=== PATIENT | female | born 1925 ===

== ENCOUNTER 2017-02-18 17:52 | Emergency (ER) | payer MEDICARE ==
[2017-02-18 17:52] VITALS: BMI 18.1
[2017-02-18] MEDS ORDERED: Oxycodone/Acetaminophen 5/325 mg Tab PO STA (18:49)
[2017-02-18] MEDS ORDERED: Oxycodone/Acetaminophen 5/325 mg Tab ONE (18:54)
[2017-02-18 19:12] LABS: BASO # 0.1 K/uL (0.0-0.2); BASO % 0.6 % (0.0-2.0); HEMATOCRIT 38.7 % (34.0-47.0); LYMPH # 0.5 K/uL (1.0-4.3); LYMPH % 5.8 % (20.0-40.0); MEAN CELL VOLUME 83.1 fL (81.0-99.0); MEAN CORPUSCULAR HEMOGLOBIN 26.6 pg (27.0-31.0); MEAN PLATELET VOLUME 8.6 fL (7.2-11.7); MONO # 0.3 K/uL (0.0-0.8); MONO % 3.5 % (0.0-10.0); PLATELET COUNT 117 K/uL (130-400)
[2017-02-18 19:14] LABS: WHITE BLOOD COUNT 8.8 K/uL (4.8-10.8)
[2017-02-18 19:22] LABS: POTASSIUM 3.7 mmol/L (3.6-5.2)
[2017-02-18 19:24] LABS: BILIRUBIN,TOTAL 1.1 mg/dL (0.2-1.3); TOTAL PROTEIN 7.3 g/dL (6.3-8.3)
[2017-02-18 19:25] LABS: CALCIUM 8.8 mg/dl (8.6-10.4)
--- NOTE | 2017-02-18 19:36 | C.PDOC ---
History Of Present Illness 89 year old female was brought to the ED by her campground caretaker for complaints of left -sided chest pain. Economic Developer notes the patient was diagnosed with a broken rib 6 -8 weeks ago, has chronic back pain associated with multiple old compression fractures and spinal stenosis. Patient also has chronic abdominal pain due to chronic pancreatitis and a history of atrial fibrillation. Due to frequent falls. Patient is not taking any anti-coagulants. Economic Developer denies any other complaints at this time. Time Seen by Provider: 02/18/17 18:07 Chief Complaint (Nursing): Abdominal Pain History Per: Patient, Family History/Exam Limitations: no limitations Onset/Duration Of Symptoms: Persistent Current Symptoms Are (Timing): Still Present Quality Of Discomfort: "Pain" Associated Symptoms: denies: Fever, Chills, Nausea, Vomiting, Diarrhea Past Medical History Vital Signs: Last Vital Signs Temp 97.7 F 02/18/17 23:46 Pulse 102 H 02/18/17 23:46 Resp 18 02/18/17 23:46 BP 141/80 02/18/17 23:46 Pulse Ox 98 02/18/17 23:46 - Medical History PMH: Atrial Fibrillation, Cardia Arrhythmia, CHF, Diabetes, HTN, Malignancy ( bone CA), Osteoporosis, Pancreatitis, Chronic Kidney Disease Surgical History: - [facility] Procedures TETANUS TOXOID ADMINIST (05/24/15) ULTRASONOGRAPHY OF RIGHT AND LEFT HEART, TRANSESOPHAGEAL (01/12/16) Family History: States: Unknown Family Hx - Social History Hx Tobacco Use: No Hx Alcohol Use: No Hx Substance Use: No Review Of Systems Except As Marked, All Systems Reviewed And Found Negative. Physical Exam - Physical Exam Appears: Chronically Ill Skin: Warm, Dry Neck: Supple Chest: Tenderness (localiazed tenderness to left chest ) Cardiovascular: Rhythm Irregular (irregularly irregular ) Respiratory: No Accessory Muscle Use, No Rales, Rhonchi (slight rhonci), No Stridor, No Wheezing Gastrointestinal/Abdominal: Soft, No Tenderness, No Distention, No Guarding, No Rebound Neurological/Psych: Oriented x3, Normal Speech, Normal Cognition Gait: With Assistance ED Course And Treatment - Laboratory Results Result Diagrams: 02/18/17 19:09 02/18/17 19:09 ECG: Interpreted By Me ECG Rhythm: Atrial Fibrillation ECG Interpretation: No Acute Changes Rate From EC O2 Sat by Pulse Oximetry: 94 Medical Decision Making Medical Decision Making: Pt remained stable in the ED Discussed with dr Kamran Houser, long hx of back pain and recant hx of chest wall pain Plan relieve pain in the and meds at home Medicated with percocet with goo relief. Pt reports the T'3s give her palpation Pt improved post med, ambulated to with assistance Plan dc home Disposition Counseled Patient/Family Regarding: Studies Performed, Diagnosis, Need For Followup - Disposition Referrals: Shad Houser MD [Staff Provider] - Disposition: HOME/ ROUTINE Disposition Time: 23:36 Condition: FAIR Prescriptions: oxyCODONE/Acetaminophen [Percocet 5/325 mg Tab] 1 tab PO Q4H PRN #20 tab PRN Reason: .severe pain Instructions: Chest Wall Pain (ED) Print Language: BURKINAN - Clinical Impression Clinical Impression: Chronic back pain, Spinal stenosis, Chest wall pain - Scribe Statement The provider has reviewed the documentation as recorded by the Scribe Deya Diaz All medical record entries made by the Jaileneibe were at my direction and personally dictated by me. I have reviewed the chart and agree that the record accurately reflects my personal performance of the history, physical exam, medical decision making, and the department course for this patient. I have also personally directed, reviewed, and agree with the discharge instructions and disposition.
[2017-02-18 20:05] LABS: EOSINOPHIL 1 % (0-4); LARGE PLATELETS PRESENT; NEUTROPHIL 92 % (50-75); TOTAL CELLS COUNTED 100
[2017-02-18 23:47] VITALS: BP 141/80; PULSE 102; RESP 18; TEMP 97.7
--- NOTE | 2017-02-19 08:21 | RAD ---
PROCEDURE: CHEST RADIOGRAPH, 1 VIEW HISTORY: Chest pain. History of rib fracture. COMPARISON: 10/16/2016 FINDINGS: LUNGS: Biapical pleural thickening with upper lobe granulomatous changes. Confluent left basilar consolidation with small to moderate left pleural effusion. Milder consolidative changes at the right lung base. Bilateral hilar prominence. Diffuse increased interstitial lung markings. Right paratracheal opacity is suggestive for prominent vasculature. PLEURA: As above. CARDIOVASCULAR: Cardiomegaly. Calcification at the aortic knob. OSSEOUS STRUCTURES: Degenerative changes in the spine and shoulders. VISUALIZED UPPER ABDOMEN: Normal. OTHER FINDINGS: None. IMPRESSION: Biapical pleural thickening with upper lobe granulomatous changes. Confluent left basilar consolidation with small to moderate left pleural effusion. Milder consolidative changes at the right lung base. Bilateral hilar prominence. Diffuse increased interstitial lung markings. Right paratracheal opacity is suggestive for prominent vasculature.
[2017-02-20 12:45] VITALS: O2SAT 94
--- NOTE | 2017-04-16 14:44 | CARD ---
APPROVED REPORT EKG Measurement Heart [id number] <Conclusion> Atrial fibrillation with rapid ventricular response Left axis deviation Septal infarct, age undetermined ST & T wave abnormality, consider lateral ischemia Abnormal ECG
== END 2017-02-18 23:47 | disposition home or self-care (01) ==
LOC: C.ER 17:52
DX: R07.89 Other chest pain (principal); G89.29 Other chronic pain; M54.9 Dorsalgia, unspecified; M48.00 Spinal stenosis, site unspecified; I10 Essential (primary) hypertension

== ENCOUNTER 2017-06-09 21:41 | Inpatient (IN) | payer MEDICARE ==
[2017-06-09 21:45] VITALS: BMI 18.1
[2017-06-09] MEDS ORDERED: Sodium Chloride 0.9% 1,000 ML IV ONE (22:28)
[2017-06-09 22:35] LABS: BASO % 0.2 % (0.0-2.0); EOS % 0.1 % (0.0-4.0); HEMOGLOBIN 13.9 g/dL (11.0-16.0); LYMPH # 0.5 K/uL (1.0-4.3); LYMPH % 6.5 % (20.0-40.0); MEAN CORPUSCULAR HEMOGLOBIN 27.4 pg (27.0-31.0); MEAN CORPUSCULAR HGB CONC 31.2 g/dL (33.0-37.0); MEAN PLATELET VOLUME 9.3 fL (7.2-11.7); MONO # 0.3 K/uL (0.0-0.8); MONO % 3.1 % (0.0-10.0); NEUT # 7.5 K/uL (1.8-7.0); NEUT % 90.1 % (50.0-75.0); NRBC % 1.3 % (0.0-2.0); RBC 5.06 Mil/uL (3.80-5.20); RED CELL DISTRIBUTION WIDTH 17.2 % (11.5-14.5); WHITE BLOOD COUNT 8.3 K/uL (4.8-10.8)
[2017-06-09 22:45] LABS: ALB/GLOB RATIO 0.8 (1.0-2.1); CALCIUM 8.1 mg/dl (8.6-10.4)
[2017-06-09 22:47] LABS: MEAN CELL VOLUME 87.9 fL (81.0-99.0); PLATELET COUNT 60 K/uL (130-400)
[2017-06-09] MEDS ORDERED: Morphine 4 MG/ML VIAL ONE (22:47)
--- NOTE | 2017-06-09 23:16 | C.PDOC ---
History Of Present Illness 89 year old female was brought to the ED by EMS after family found unresponsive. As per family, patient has had no fluid or food intake for four days and has a history of bone CA. Family denies trauma or any other complaints at this time. Chief Complaint (Nursing): Weakness/Neurological Deficit History Per: EMS, Family History/Exam Limitations: no limitations Onset/Duration Of Symptoms: Hrs Current Symptoms Are (Timing): Still Present Seizure Or Post-ictal Symptoms: None Fall Associated With With Symptoms: No Additional History Per: Prior Records Past Medical History Reviewed: Historical Data, Nursing Documentation, Vital Signs Vital Signs: Last Vital Signs Temp 98.1 F 06/10/17 18:42 Pulse 120 H 06/10/17 20:49 Resp 20 06/10/17 18:42 BP 155/82 H 06/10/17 18:42 Pulse Ox 100 06/10/17 15:45 - Medical History PMH: Atrial Fibrillation, Cardia Arrhythmia, CHF, Diabetes, HTN, Malignancy ( bone CA), Osteoporosis, Pancreatitis, Chronic Kidney Disease Surgical History: - [facility] Procedures TETANUS TOXOID ADMINIST (05/24/15) ULTRASONOGRAPHY OF RIGHT AND LEFT HEART, TRANSESOPHAGEAL (01/12/16) Family History: States: Unknown Family Hx - Social History Hx Tobacco Use: No Hx Alcohol Use: No Hx Substance Use: No - Immunization History Hx Tetanus Toxoid Vaccination: No Hx Influenza Vaccination: No Hx Pneumococcal Vaccination: No Review Of Systems Constitutional: Positive for: Weakness, Other (No oral intake for four days ). Negative for: Fever, Chills Respiratory: Negative for: Cough Gastrointestinal: Negative for: Vomiting, Diarrhea Physical Exam - Physical Exam Appears: In Acute Distress, Other (Patient appears lethargic ) Skin: Other (Poor skin turgor ) Head: Atraumatic Oral Mucosa: Dry, Other (Poor buccal mucosa ) Neck: Supple Chest: Symmetrical Cardiovascular: Other (Patient is irregularly irregular, tachycardic. ) Respiratory: Normal Breath Sounds, No Rhonchi, No Wheezing Gastrointestinal/Abdominal: Soft, No Tenderness, No Distention, No Guarding, No Rebound Extremity: No Swelling, Other (Poor turgor of the extremities ) ED Course And Treatment - Laboratory Results Result Diagrams: 06/10/17 21:57 06/10/17 21:57 Progress Note: Case discussed with Dr. Garcia and agrees on admission. Dr. Hess talked to family at bedside and agreed on no aggressive measures. - Physician Consult Information Time Consulting Physician Contacted: 23:30 Physician Contacted: Shad Houser Outcome Of Conversation: Case discussed with Dr. Houser and told to contact thermite bomb loader, Dr. Garcia. Agrees with admission. Disposition Discussed With : Shad Houser Doctor Will See Patient In The: Hospital Counseled Patient/Family Regarding: Diagnosis - Disposition Disposition: HOSPITALIZED Disposition Time: 23:17 Condition: GUARDED - POA Present On Arrival: Poor Glycemic Control - Clinical Impression Clinical Impression: Severe dehydration, Atrial fibrillation, Hypernatremia, Bone cancer - Scribe Statement The provider has reviewed the documentation as recorded by the Scribe Deya Diaz All medical record entries made by the Jaileneibgui were at my direction and personally dictated by me. I have reviewed the chart and agree that the record accurately reflects my personal performance of the history, physical exam, medical decision making, and the department course for this patient. I have also personally directed, reviewed, and agree with the discharge instructions and disposition.
--- NOTE | 2017-06-09 23:32 | RAD ---
EXAM: XR Chest, 1 View CLINICAL HISTORY: 89 years old, female; Signs and symptoms; Tachypnea TECHNIQUE: Frontal view of the chest. COMPARISON: CR - CHEST PORTABLE 01/13/2016 10:29:22 AM FINDINGS: Lungs: Atelectasis at lung bases. No consolidation. Pleural space: Unremarkable. No pneumothorax. Heart: Moderate cardiomegaly, stable. Mediastinum: Unremarkable. Bones/joints: Degenerative changes lumbosacral spine. Vasculature: Atherosclerotic vascular disease. IMPRESSION: 1. Moderate cardiomegaly, stable. 2. Remainder of findings as above.
[2017-06-09 23:52] LABS: BANDS 2 % (0-2); LYMPHOCYTE 6 % (20-40); MONOCYTE 1 % (0-10); NEUTROPHIL 90 % (50-75); NUCLEATED RED BLOOD CELL 3 % (0-0); REACTIVE LYMPHOCYTES 1 % (0-0); TOTAL CELLS COUNTED 100
[2017-06-09 23:53] LABS: PLATELET ESTIMATE DECREASED (NORMAL)
[2017-06-10] MEDS: Dextrose 5%/0.45% NS 1,000 ML IV SCH ×2 (00:49→17:48)
--- NOTE | 2017-06-10 03:30 | CON ---
HISTORY OF PRESENT ILLNESS: An 89-year-old female was brought in with a history of unresponsiveness. The patient had a very poor intake for the last few days. She was found to have a BUN of 100, sodium of 164 and creatinine of 3.2. The patient is known to me over the past several years. She carries a diagnosis of congestive heart failure systolic and diastolic dysfunction, atrial fibrillation, severe MR, severe AI, chronic atrial fibrillation, diabetes and hypertension. Over the past few years, her condition has been deteriorating. At home, she is maintained on multiple medications including Januvia 25 mg, glimepiride, insulin, Coreg, diuretics and QUANG inhibitors. For the past few days, she has not been eating or drinking, came to the emergency room, was found to be very unresponsive. PAST MEDICAL HISTORY: Admitted on several occasions for congestive heart failure and atrial fibrillation. Past medical history of CHF, diabetes, hypertension, osteoporosis, pancreatitis, severe abdominal pain and chronic kidney disease. PERSONAL HISTORY: Does not smoke and does not drink. ALLERGIES: DENIED. REVIEW OF SYSTEMS: Generalized weakness, obtundation and poor appetite. No fevers and no chills. No definite urinary incontinence. No UTI in the past. No history of TIAs or CVAs. No hematemesis, no melena and no hemoptysis. Chronic backache and chronic abdominal pain. No history of depression. Irregular heartbeat. No history of rheumatic fever. PHYSICAL EXAMINATION GENERAL: Shows elderly female who is very lethargic, barely arousable, in no acute distress. VITAL SIGNS: She is about 4 feet and weighs 80 pounds. Her blood pressure is 140/70, heart rate of 106, atrial fibrillation, respiratory rate of 20 and afebrile. HEENT: Head is normocephalic. Eyes, no pallor, no icterus. NECK: Neck veins, external jugular veins are distended. LUNGS: Show decreased air entry at the bases. HEART: PMI is not localized. S1 and S2 is distant and tachycardic. ABDOMEN: Soft. EXTREMITIES: Show trace pitting edema. Distal pulses could not be felt. Extremities are cold to touch. NEUROLOGIC: Does not follow any commands. LABORATORY DATA: Show hemoglobin of 13.9, sodium of 164, BUN is 111, creatinine is 3.2, glucose is 243, bilirubin is 1.5. EKG is not available . ASSESSMENT: This is an 89-year-old female with chronic atrial fibrillation and congestive heart failure who has presented with severe dehydration and prerenal azotemia on top of chronic kidney disease. PLAN: At this point is to give her IV fluids. Care of plan was explained to the patient's daughters who were at the bedside. I also discussed the case with Dr. Garcia, the asset management coordinator, and was called in for emergency consult. The patient's family has requested DNR and I concur with that decision. We will give supportive care. Prognosis is extremely poor. Shad Houser MD
--- NOTE | 2017-06-10 11:06 | PCM.RRTMUL ---
PUBLIC HEALTH NUTRITIONIST Nurses Assessment - Situation PUBLIC HEALTH NUTRITIONIST Responder Arrival Time:: 10:40 Location:: [facility] Room Number:: 50-B PUBLIC HEALTH NUTRITIONIST Reason for Call: O2 Saturation below 90% PUBLIC HEALTH NUTRITIONIST Called By: Physician - IV IV Inserted during PUBLIC HEALTH NUTRITIONIST?: No - Respiratory Oxygen Delivery Method:: Nasal Cannula, Mask, BiPAP Was the Patient Ventilated with Bag/Mask 100% O2?: Yes Secretions Suctioned?: No Was the Patient Intubated?: No Was the Patient Placed on a Ventilator?: No - Diagnostic Test Ordered EKG:: Yes (ordered but not done due to code status) Chest X-Ray:: Yes CPR started during PUBLIC HEALTH NUTRITIONIST?: No - Vital Signs Blood Pressure:: 155/82 Pulse Rate:: 82 Respiratory Rate:: 20 Temperature:: 98.1 F Oxygen Saturation:: 73 - Jacques Coma Scale Coma Scale Eye Opening:: Spontaneous Coma Scale Motor:: Movement to pain stimulus Coma Scale Verbal:: No response Coma Scale Total:: 10 - Vital Signs at end of PUBLIC HEALTH NUTRITIONIST O2 Sat by Pulse Oximetry:: 97 - Recommendations 5) PUBLIC HEALTH NUTRITIONIST Level of Care Recommendations: Remain in current setting 6) Notifications: Attending Physician, Family or Designated Caregiver I.Reason for PUBLIC HEALTH NUTRITIONIST - A) Acute Change in Patient: (Select all that apply): Acute change in SpO2 less - A) Initial Vital Signs: Blood Pressure: 155/82 Pulse Rate: 124 O2 Sat by Pulse Oximetry: 73 - B) Neurological Status (Select all that apply): Lethargic - C) Respiratory Oxygen Delivery Method: Nasal Cannula @L/min (4), BiPAP @% (10 IPAP 5 EPAP FiO2 100%), Non Rebreather @% - Constitutional Appears: Chronically Ill - Head Head Exam: ATRAUMATIC, NORMAL INSPECTION, NORMOCEPHALIC - Eyes Eye Exam: EOMI, PERRL - Respiratory Exam Respiratory Exam: Respiratory Distress - Cardiovascular Exam Cardiovascular Exam: Tachycardia, Irregular Rhythm, +S1, +S2 - GI/Abdominal Exam GI & Abdominal Exam: Soft, Normal Bowel Sounds - Neurological Exam Neurological Exam: Awake Plan - A. End of PUBLIC HEALTH NUTRITIONIST Vital Signs: O2 Sat by Pulse Oximetry: 97 - B. Assessment of Findings&Treatment Plan PUBLIC HEALTH NUTRITIONIST called by resident house doctor at 10:40 AM for respiratory decompensation with immediate response and arrival of team. O2 sat in the beginning was 73% on Nasal Cannula 4L BP in the beginning was 158/92 Pulse in the beginning was 124 Glucose measured at 341. Cardizem 10 mg IV stat was given. Patient placed on non-rebreather mask. At 10:46 O2 sat was 79% and the patient became more responsive. At 10:48 became 95% O2 sat. A 2nd Cardizem 10 mg IV was given. CXR, EKG, BiPAP ordered. BP was 156/70 at 10:57 Daughter was located and Dr. Tapia spoke to her about code status. Patient originally DNR only. Daughter agreed to change code status to DNI as well. Dr. Mccloud was called and informed of the situation. Comfort care was decided. PUBLIC HEALTH NUTRITIONIST ended with patient O2 sat at 95% on BiPAP.
[2017-06-10] MEDS: Morphine 4 MG/ML VIAL SC PRN ×2 (11:25→17:27)
[2017-06-10] MEDS: (Novolog) Insulin Aspart, Recombinant 100 u/ml 10 ml vial SC SCH ×3 (12:30→22:14)
--- NOTE | 2017-06-10 12:54 | RAD ---
Chest x-ray single frontal view History: Desaturation. Comparison: 06/09/2017 Findings: Biapical pleural thickening with upper lobe granulomatous changes. Diffuse increased interstitial markings throughout both lung jarquin. Bilateral hilar prominence. Additional consolidative changes in the right infrahilar region and left mid lung zone. Cardiomegaly. Degenerative changes in the spine and shoulders. Impression: Biapical pleural thickening with upper lobe granulomatous changes. Diffuse increased interstitial markings throughout both lung jarquin. Bilateral hilar prominence. Additional consolidative changes in the right infrahilar region and left mid lung zone. Cardiomegaly. Degenerative changes in the spine and shoulders.
--- NOTE | 2017-06-10 15:36 | CP.PCM.CON ---
History of Present Illness - History of Present Illness History of Present Illness: pt is seen and examined, full consult is dictated #[id number] 1. hypernatremia sec to intravascular volume depletion, sec to decreased po intake 2. MUNIR on CKD, picture c/w pre renal azotemia sec to dehydration 3.cad 4. htn 5. dm change ivf d5w at 60 ml/hr adjust insulin coverage for accu checks check bmp daily prognosis is poor Past Patient History - Infectious Disease Hx of Infectious Diseases: None - Past Medical History & Family History Past Medical History?: Yes - Past Social History Smoking Status: Never Smoked - CARDIAC Hx Atrial Fibrillation: Yes Hx Cardia Arrhythmia: Yes Hx Congestive Heart Failure: Yes Hx Hypertension: Yes - PULMONARY Hx Respiratory Disorders: No - NEUROLOGICAL Hx Neurological Disorder: No - HEENT Hx HEENT Problems: Yes Hx Cataracts: Yes Other/Comment: with eye implants to both eyes - RENAL Hx Chronic Kidney Disease: Yes - ENDOCRINE/METABOLIC Hx Endocrine Disorders: Yes Hx Diabetes Mellitus Type 2: Yes - HEMATOLOGICAL/ONCOLOGICAL Hx Blood Disorders: No Other/Comment: BONE CA - INTEGUMENTARY Hx Dermatological Problems: No - MUSCULOSKELETAL/RHEUMATOLOGICAL Hx Osteoporosis: Yes - GASTROINTESTINAL Hx Pancreatitis: Yes - GENITOURINARY/GYNECOLOGICAL Hx Genitourinary Disorders: No - PSYCHIATRIC Hx Substance Use: No - SURGICAL HISTORY Hx Surgeries: Yes Hx Section: Yes Hx Hysterectomy: Yes Hx Orthopedic Surgery: Yes (RIGHT KNEE) - ANESTHESIA Hx Anesthesia: Yes Hx Anesthesia Reactions: No Hx Malignant Hyperthermia: No Meds Allergies/Adverse Reactions: Allergies Allergy/AdvReac Type Severity Reaction Status Date / Time aspirin Allergy Unknown Verified 02/18/17 18:03 Penicillins Allergy Unknown Verified 02/18/17 18:03 codeine AdvReac Severe Verified 02/18/17 18:03 - Medications Medications: Current Medications Carvedilol (Coreg) 3.125 mg PO BID [facility] Last Admin: 06/10/17 14:01 Dose: 3.125 mg Diltiazem HCl (Cardizem) 30 mg PO QID [facility] Last Admin: 06/10/17 13:58 Dose: 30 mg Famotidine (Pepcid) 20 mg PO DAILY [facility] Last Admin: 06/10/17 14:01 Dose: 20 mg Dextrose/Sodium Chloride (Dextrose 5%/0.45% Ns 1000 Ml) 1,000 mls @ 60 mls/hr IV .[id number] [facility] Last Admin: 06/10/17 00:49 Dose: 60 mls/hr Insulin Aspart (Novolog) 0 unit SC ACHS [facility] PRN Reason: Protocol Last Admin: 06/10/17 12:30 Dose: Not Given Morphine Sulfate (Morphine) 2 mg SC Q6 PRN PRN Reason: Pain, severe (8-10) Last Admin: 06/10/17 11:25 Dose: 2 mg Rivaroxaban (Xarelto) 10 mg PO QPM [facility] Results - Vital Signs Recent Vital Signs: Last Vital Signs Temp 98.1 F 06/10/17 11:21 Pulse 112 H 06/10/17 13:57 Resp 20 06/10/17 11:21 BP 145/80 06/10/17 13:57 Pulse Ox 97 06/10/17 08:01 - Labs Result Diagrams: 06/09/17 22:29 06/09/17 22:29 Labs: Laboratory Results - last 24 hr 06/10/17 10:45 POC Glucose (mg/dL) 341 H
[2017-06-10] MEDS ORDERED: Digoxin 500 mcg/2ml (0.5 mg/2ml) Inj IVP ONE (16:12)
[2017-06-10 17:27] VITALS: PULSE 100
[2017-06-10] MEDS: Morphine 4 MG/ML VIAL IVP PRN (21:29)
[2017-06-10 22:03] LABS: BASO % 0.1 % (0.0-2.0); HEMOGLOBIN 13.9 g/dL (11.0-16.0); LYMPH # 0.2 K/uL (1.0-4.3); LYMPH % 4.4 % (20.0-40.0); MEAN CORPUSCULAR HEMOGLOBIN 27.3 pg (27.0-31.0); MEAN PLATELET VOLUME 8.5 fL (7.2-11.7); MONO # 0.1 K/uL (0.0-0.8); MONO % 2.4 % (0.0-10.0); NEUT # 4.2 K/uL (1.8-7.0); NEUT % 93.1 % (50.0-75.0); NRBC % 1.1 % (0.0-2.0); PLATELET COUNT 49 K/uL (130-400); RBC 5.09 Mil/uL (3.80-5.20); RED CELL DISTRIBUTION WIDTH 17.3 % (11.5-14.5); WHITE BLOOD COUNT 4.5 K/uL (4.8-10.8)
[2017-06-10 22:10] LABS: CALCIUM 8.2 mg/dl (8.6-10.4)
--- NOTE | 2017-06-10 22:20 | CP.PCM.HP ---
History of Present Illness - History of Present Illness History of Present Illness: 89 Y/O HF WITH DM HTN, CAD,A.FIBRILLATION AND SHE HAS ADVANCED BONE CANCER AND SHE CAME WITH WORSENING WEAKNESS, ANOREXIA, MALAISE FATIGUE, CHEST CONGESTION FEVER, CHILLS RIGORS, AND SEH HAS EXTENSIVE BONE PAINS, SHE IS DYSPNEIC AND A RR WAS CALLED TODAY LANCE WAS HYPOXEMIC, I DISCUSSED THE CASE WITH FAMILY AND THEY WAS SUPPORTIVE CARE, DNR, DNI AND SHE IS ON BIPEP, SHE IS AWAKE, AND IN MOD RESPIRATORY DISTRESS Present on Admission - Present on Admission Any Indicators Present on Admission: Yes History of DVT/PE: No History of Uncontrolled Diabetes: Yes Urinary Catheter: No Decubitus Ulcer Present: No Review of Systems - Review of Systems Systems not reviewed;Unavailable: Respiratory Distress - Constitutional Constitutional: Anorexia, Chills, Headache, Malaise, Night Sweats, Weight Loss, Weakness - Respiratory Respiratory: Cough - Gastrointestinal Gastrointestinal: Belching, Bloating, Heartburn - Genitourinary Genitourinary: Urinary Hesitance - Musculoskeletal Musculoskeletal: Abnormal Gait, Arthralgias, Muscle Weakness - Neurological Neurological: Abnormal Gait, Abnormal Speech, Dizziness, Numbness - Psychiatric Psychiatric: Confusion Past Patient History - Infectious Disease Hx of Infectious Diseases: None - Past Medical History & Family History Past Medical History?: Yes - Past Social History Smoking Status: Never Smoked - CARDIAC Hx Atrial Fibrillation: Yes Hx Cardia Arrhythmia: Yes Hx Congestive Heart Failure: Yes Hx Hypertension: Yes - PULMONARY Hx Respiratory Disorders: No - NEUROLOGICAL Hx Neurological Disorder: No - HEENT Hx HEENT Problems: Yes Hx Cataracts: Yes Other/Comment: with eye implants to both eyes - RENAL Hx Chronic Kidney Disease: Yes - ENDOCRINE/METABOLIC Hx Endocrine Disorders: Yes Hx Diabetes Mellitus Type 2: Yes - HEMATOLOGICAL/ONCOLOGICAL Hx Blood Disorders: No Other/Comment: BONE CA - INTEGUMENTARY Hx Dermatological Problems: No - MUSCULOSKELETAL/RHEUMATOLOGICAL Hx Osteoporosis: Yes - GASTROINTESTINAL Hx Pancreatitis: Yes - GENITOURINARY/GYNECOLOGICAL Hx Genitourinary Disorders: No - PSYCHIATRIC Hx Substance Use: No - SURGICAL HISTORY Hx Surgeries: Yes Hx Section: Yes Hx Hysterectomy: Yes Hx Orthopedic Surgery: Yes (RIGHT KNEE) - ANESTHESIA Hx Anesthesia: Yes Hx Anesthesia Reactions: No Hx Malignant Hyperthermia: No Meds Allergies/Adverse Reactions: Allergies Allergy/AdvReac Type Severity Reaction Status Date / Time aspirin Allergy Unknown Verified 02/18/17 18:03 Penicillins Allergy Unknown Verified 02/18/17 18:03 codeine AdvReac Severe Verified 02/18/17 18:03 Physical Exam - Constitutional Appears: In Acute Distress - Head Exam Head Exam: ATRAUMATIC, NORMAL INSPECTION, NORMOCEPHALIC (BIPEP) - Eye Exam Eye Exam: EOMI - ENT Exam ENT Exam: Mucous Membranes Moist, Normal Exam - Respiratory Exam Respiratory Exam: Clear to Auscultation Bilateral, Respiratory Distress, NORMAL BREATHING PATTERN - Cardiovascular Exam Cardiovascular Exam: Tachycardia, +S1, +S2 - GI/Abdominal Exam GI & Abdominal Exam: Normal Bowel Sounds - Rectal Exam Rectal Exam: NORMAL INSPECTION - Exam Exam: NORMAL INSPECTION - Extremities Exam Extremities exam: Positive for: normal inspection - Back Exam Back exam: NORMAL INSPECTION - Neurological Exam Neurological exam: Abnormal Gait, Altered, Motor Sensory Deficit - Psychiatric Exam Psychiatric exam: Anxious - Skin Skin Exam: Dry Results - Vital Signs Recent Vital Signs: Last Vital Signs Temp 98.1 F 06/10/17 18:42 Pulse 120 H 06/10/17 20:49 Resp 20 06/10/17 18:42 BP 155/82 H 06/10/17 18:42 Pulse Ox 100 06/10/17 15:45 - Labs Result Diagrams: 06/10/17 21:57 06/10/17 21:57 Labs: Laboratory Results - last 24 hr 06/10/17 06/10/17 06/10/17 10:45 17:26 21:55 WBC RBC Hgb Hct MCV MCH MCHC RDW Plt Count MPV Neut % (Auto) Lymph % (Auto) Blount % (Auto) Eos % (Auto) Baso % (Auto) Neut # Lymph # Blount # Eos # Baso # Sodium Potassium Chloride Carbon Dioxide Anion Gap BUN Creatinine Est GFR ( Amer) Est GFR (Non-Af Amer) POC Glucose (mg/dL) 341 H 394 H 231 H Random Glucose Calcium 06/10/17 06/10/17 21:57 21:57 WBC 4.5 L RBC 5.09 Hgb 13.9 Hct 44.8 MCV 88.0 MCH 27.3 MCHC 31.0 L RDW 17.3 H Plt Count 49 L MPV 8.5 Neut % (Auto) 93.1 H Lymph % (Auto) 4.4 L Blount % (Auto) 2.4 Eos % (Auto) 0.0 Baso % (Auto) 0.1 Neut # 4.2 Lymph # 0.2 L Blount # 0.1 Eos # 0.0 Baso # 0.0 Sodium 164 H* Potassium 3.6 Chloride 123 H Carbon Dioxide 24 Anion Gap 21 H BUN 85 H Creatinine 2.4 H Est GFR ( Amer) 23 Est GFR (Non-Af Amer) 19 POC Glucose (mg/dL) Random Glucose 215 H Calcium 8.2 L Assessment & Plan (1) Bone cancer Status: Chronic Priority: Medium (2) Hypernatremia Status: Acute Priority: High (3) Severe dehydration Status: Acute Priority: High (4) Diabetes mellitus Status: Chronic (5) Hypertension Status: Chronic
[2017-06-10 22:38] LABS: ANISOCYTOSIS SLIGHT; BANDS 2 % (0-2); LYMPHOCYTE 2 % (20-40); MONOCYTE 2 % (0-10); NEUTROPHIL 94 % (50-75); PLATELET ESTIMATE DECREASED (NORMAL); TOTAL CELLS COUNTED 100
[2017-06-11] MEDS: Morphine 4 MG/ML VIAL IVP PRN ×3 (01:43→19:40)
--- NOTE | 2017-06-11 07:37 | CON ---
DATE: 06/10/2017 RENAL CONSULTATION LOCATION: The patient is located in room 650, bed B. REQUESTED BY: Dr. Ricki Mccloud and Dr. Shad Houser. REASON FOR RENAL CONSULTATION: Acute renal failure, chronic kidney disease, and severe hypernatremia. SUBJECTIVE: Mrs. Hill is 89 years old elderly female with the past medical history significance for long standing hypertension, diabetes, coronary artery disease, CHF, AFib with left atrial thrombus on anticoagulation, chronic kidney disease, who was brought in by family after the patient was found unresponsive, and the patient also has decreased p. o intake and decreased p.o fluids for last 3 to 4 days. The patient was found have severe hypernatremia in the emergency room with renal failure and started on IV fluids normal saline initially, subsequently changed to D5W at 60 mL per hour. The patient is on BiPAP machine. The patient is not in a acute distress. The patient has a poor historian. History obtained from the review of the chart and also from the patient's daughter at bedside. The patient is on BiPAP, not in distress. No chest pain, no palpitation, no nausea, no vomiting, no diarrhea. Decreased p.o. intake for the last 3 to 4 days. REVIEW OF SYSTEMS: Significant for dehydration and decreased PO in take. All other review of systems are reviewed and are negative. PAST MEDICAL HISTORY: Significant for hypertension, diabetes, CHF, cardiac arrhythmia, AFib, osteoporosis, pancreatitis, chronic kidney disease. PAST SURGICAL HISTORY: . ALLERGIES: ALLERGIC TO ASPIRIN, PENICILLIN AND CODEINE. SOCIAL HISTORY: No smoking, no alcohol, no drugs. PERSONAL HISTORY: She has 5 children. FAMILY HISTORY: Not significant. She has a very supportive family. HOME MEDICATIONS: Include Percocet 1 tablet q 4 hours p.r.n, clonidine 0.1 mg p o. b.i.d, Norvasc 10 mg daily, Januvia 25 mg daily, Xarelto 10 mg daily, Imdur 30 mg p o. daily, Lasix 40 p o. daily, Pepcid 20 mg p.o. daily, Coreg 3.125 mg p o. b.i.d. CURRENT MEDICATIONS IN THE HOSPITAL: Cardizem 30 mg p o. q.i.d, Coreg 3.125 mg p o. b.i.d, IV fluids D5 half normal saline at 60 mL per hour, morphine 2 mg IV q 4 hours, Novolog insulin sliding scale, Pepcid 20 mg p o. daily, and Xarelto 10 mg p o. at bedtime. PHYSICAL EXAMINATION: GENERAL: Mrs Hill is an 89 years old very cachetic elderly female, on BiPAP, not in distress. VITAL SIGNS: As follows: Blood pressure 155/82, pulse 124, respirations 20, saturation 97% on BiPAP, temperature 98.1. Height 4 feet and weight is 81 pounds, BMI 24.8. HEENT: Pupils are normal, reactive to light and accommodation. Conjunctivae pink. Sclerae anicteric. Tongue is dry. Trachea is midline on BiPAP. LUNGS: Symmetry on both sides. Bilateral breath sounds present. Clear on auscultation. CARDIOVASCULAR SYSTEM: Krypton at the fifth intercostal space, midclavicular line. S1 and S2 audible. No murmur or gallop. ABDOMEN: Normal in appearance, scaphoid, soft, tympanic. No guarding. No rigidity. No hepatosplenomegaly. CENTRAL NERVOUS SYSTEM: The patient is alert, awake, following commands appropriately. EXTREMITIES: No cyanosis. No clubbing. No edema. SKIN: Turgor is poor. LABORATORY DATA: Include as follows; As of ; WBC 8.3, hemoglobin 13.9, hematocrit 44.5, platelets 60. Neutrophils 90, bands 2, lymph 6, nucleated RBC 3, and monocytes 1. Sodium 164, potassium 4.5, chloride 123, CO2 of 19, BUN 111, creatinine 3.2, glucose 221, calcium 8.1, total bilirubin 1.5, AST 35, ALT 33, alkaline phosphatase 80, total protein 6.7, albumin 3.0 and serum ketones small. Accu-Chek 243, and as of 06/10/2017, the Accu-Cheks are 341 and 394. Other reports; chest x-ray as of 06/10/2017, impression biapical pleural thickening with upper lobe granulomatous changes, diffuse increased interstitial lung markings throughout both lung jarquin, bilateral hilar prominence, additional consolidative changes in the right infrahilar region and left mid lung zone cardiomegaly. Degenerative changes in the spine and shoulders. ASSESSMENT: In summary Mrs. Hill is 89 years old very thin build, cachetic female with hypertension, diabetes, congestive heart failure, coronary artery disease, atrial fibrillation, osteoporosis, chronic kidney disease, history of left atrial thrombus on anticoagulation, was admitted with decreased p.o. intake for 3 to 4 days and dehydration, increased BUN and creatinine, and increased serum sodium. 1. Hypernatremia, secondary to intravascular volume depletion, secondary to dehydration and decreased p.o. intake. 2. Acute renal failure secondary to dehydration, picture consisting of prerenal azotemia. 3. Coronary artery disease. 4. Severe aortic stenosis, continue anticoagulation as per semiconductor packages sealer. PLAN: Consider to change IV fluids to D5W at 60 mL per hour and adjust insulin and cover Accu-Cheks with insulin sliding scale and repeat BMP today and tomorrow. Check urinalysis and osmolality, urine culture. Overall prognosis is poor. Patient is DNR. We will follow with you. Thank you for allowing me to participate in your patient's care. Vel Garcia MD
[2017-06-11] MEDS: (Novolog) Insulin Aspart, Recombinant 100 u/ml 10 ml vial SC SCH ×4 (08:30→22:08)
[2017-06-11 11:04] VITALS: O2SAT 92
--- NOTE | 2017-06-11 14:09 | CP.PCM.PN ---
Subjective - Date & Time of Evaluation Date of Evaluation: 06/11/17 Time of Evaluation: 14:07 - Subjective Subjective: still sob,a,fib rvr. Objective - Vital Signs/Intake and Output Vital Signs (last 24 hours): Temp Pulse Resp BP Pulse Ox 99.5 F 112 H 24 127/71 92 L 06/11/17 10:34 06/11/17 10:34 06/11/17 10:34 06/11/17 10:34 06/11/17 10:34 Intake and Output: 06/11/17 06/11/17 06:59 18:59 Intake Total 480 Balance 480 - Medications Medications: Current Medications Carvedilol (Coreg) 3.125 mg PO BID [facility] Last Admin: 06/11/17 10:41 Dose: Not Given Diltiazem HCl (Cardizem) 30 mg PO QID [facility] Last Admin: 06/11/17 10:40 Dose: Not Given Famotidine (Pepcid) 20 mg PO DAILY [facility] Last Admin: 06/11/17 10:41 Dose: Not Given Dextrose (Dextrose 5% In Water 1000 Ml) 1,000 mls @ 60 mls/hr IV .[id number] [facility] Last Admin: 06/11/17 02:15 Dose: 60 mls/hr Insulin Aspart (Novolog) 0 unit SC ACHS [facility] PRN Reason: Protocol Last Admin: 06/11/17 12:30 Dose: Not Given Morphine Sulfate (Morphine) 2 mg IVP Q4 PRN PRN Reason: Pain, severe (8-10) Last Admin: 06/11/17 10:43 Dose: 2 mg Rivaroxaban (Xarelto) 10 mg PO QPM [facility] Last Admin: 06/10/17 17:53 Dose: Not Given - Labs Labs: 06/10/17 21:57 06/10/17 21:57 - Constitutional Appears: In Acute Distress - Neck Exam Neck Exam: Normal Inspection - Respiratory Exam Respiratory Exam: Rhonchi - Cardiovascular Exam Cardiovascular Exam: Irregular Rhythm Assessment and Plan - Assessment and Plan (Free Text) Assessment: family has refused all po meds,ng tube for feeding & meds. no blood work.
--- NOTE | 2017-06-11 18:28 | CP.PCM.PN ---
Subjective - Date & Time of Evaluation Date of Evaluation: 06/11/17 Time of Evaluation: 18:27 - Subjective Subjective: pt is seen and examined, follow up consult is dictated #[id number] Objective - Vital Signs/Intake and Output Vital Signs (last 24 hours): Temp Pulse Resp BP Pulse Ox 99.5 F 106 H 24 127/71 92 L 06/11/17 10:34 06/11/17 12:00 06/11/17 10:34 06/11/17 10:34 06/11/17 10:34 Intake and Output: 06/11/17 06/11/17 06:59 18:59 Intake Total 480 480 Balance 480 480 - Medications Medications: Current Medications Carvedilol (Coreg) 3.125 mg PO BID [facility] Last Admin: 06/11/17 18:11 Dose: Not Given Diltiazem HCl (Cardizem) 30 mg PO QID [facility] Last Admin: 06/11/17 18:11 Dose: Not Given Famotidine (Pepcid) 20 mg PO DAILY [facility] Last Admin: 06/11/17 10:41 Dose: Not Given Dextrose (Dextrose 5% In Water 1000 Ml) 1,000 mls @ 60 mls/hr IV .[id number] [facility] Last Admin: 06/11/17 18:09 Dose: 60 mls/hr Insulin Aspart (Novolog) 0 unit SC ACHS [facility] PRN Reason: Protocol Last Admin: 06/11/17 17:30 Dose: 3 unit Morphine Sulfate (Morphine) 2 mg IVP Q4 PRN PRN Reason: Pain, severe (8-10) Last Admin: 06/11/17 10:43 Dose: 2 mg Rivaroxaban (Xarelto) 10 mg PO QPM [facility] Last Admin: 06/11/17 18:12 Dose: Not Given - Labs Labs: 06/10/17 21:57 06/10/17 21:57
[2017-06-11 18:35] VITALS: BP 136/66; RESP 22; TEMP 97.4
[2017-06-11 20:54] LABS: CALCIUM 8.6 mg/dl (8.6-10.4)
[2017-06-11 23:02] VITALS: PULSE 105
--- NOTE | 2017-06-11 23:44 | CP.PCM.PN ---
Subjective - Date & Time of Evaluation Date of Evaluation: 06/11/17 - Subjective Subjective: TERMINALLY SICK AND SHE IS DISTRESS, ON SUPPORTIVE CARE Objective - Vital Signs/Intake and Output Vital Signs (last 24 hours): Temp Pulse Resp BP Pulse Ox 97.4 F L 105 H 22 136/66 92 L 06/11/17 15:35 06/11/17 23:00 06/11/17 15:35 06/11/17 15:35 06/11/17 10:34 Intake and Output: 06/11/17 06/12/17 18:59 06:59 Intake Total 480 Balance 480 - Medications Medications: Current Medications Carvedilol (Coreg) 3.125 mg PO BID [facility] Last Admin: 06/11/17 18:11 Dose: Not Given Diltiazem HCl (Cardizem) 30 mg PO QID [facility] Last Admin: 06/11/17 21:56 Dose: Not Given Famotidine (Pepcid) 20 mg PO DAILY [facility] Last Admin: 06/11/17 10:41 Dose: Not Given Dextrose (Dextrose 5% In Water 1000 Ml) 1,000 mls @ 80 mls/hr IV .[id number] [facility] Last Admin: 06/11/17 21:47 Dose: 80 mls/hr Insulin Aspart (Novolog) 0 unit SC ACHS [facility] PRN Reason: Protocol Last Admin: 06/11/17 22:08 Dose: Not Given Morphine Sulfate (Morphine) 2 mg IVP Q4 PRN PRN Reason: Pain, severe (8-10) Last Admin: 06/11/17 19:40 Dose: 2 mg Rivaroxaban (Xarelto) 10 mg PO QPM [facility] Last Admin: 06/11/17 18:12 Dose: Not Given - Labs Labs: 06/10/17 21:57 06/11/17 20:24 - Constitutional Appears: In Acute Distress, Chronically Ill - Head Exam Head Exam: ATRAUMATIC, NORMAL INSPECTION, NORMOCEPHALIC - Eye Exam Eye Exam: Normal appearance - ENT Exam ENT Exam: Mucous Membranes Moist, Normal Exam - Neck Exam Neck Exam: Normal Inspection - Respiratory Exam Respiratory Exam: Rales, Rhonchi - GI/Abdominal Exam GI & Abdominal Exam: Soft, Normal Bowel Sounds - Rectal Exam Rectal Exam: NORMAL INSPECTION - Neurological Exam Neurological Exam: Abnormal Gait, Altered Assessment and Plan (1) Bone cancer Status: Chronic (2) Hypernatremia Status: Acute (3) Severe dehydration Status: Acute (4) Diabetes mellitus Status: Chronic (5) Hypertension Status: Chronic
--- NOTE | 2017-06-12 00:43 | CP.PCM.PRO ---
Pronouncement of Note - Clinical Findings Physical Exam: No Response Verbal/Painful Stimuli, Absent Peripheral Pulses{ Carotid & Femoral}, Absent Heart & Breath Sounds, No Pupillary Light Reflex, Pupils Fixed & Dilated, Absence of Vital Signs - Pronouncement Time Time of Pronouncement of : 12:25 (Formal pronouncement 12:25 AM. Patient ' s actual time of 12:00AM on 06/12/17.) - Notifications Pronouncement Notifications: Family Notified, Atending Notified (Attending to be notified in the AM.) Country Printer Apprentice Notified: Yes - Autopsy Autopsy Requested: No [place]: [id number] Additional Comments: Pronouncement of called at 12:25AM on 06/12/17 by sports writer. Covering admitting physician to be notified. Family members present bedside. Absence of pulses, respirations, and pupil response. Unresponsive to painful stimuli. No heart sounds or breath sounds appreciated.
--- NOTE | 2017-06-12 02:31 | PN ---
DATE: 06/11/2017 FOLLOWUP RENAL CONSULTATION REPORT LOCATION: The patient is located in room 655. REQUESTED BY: Dr. Ricki Mccloud and Dr. Shad Houser. REASON FOR FOLLOWUP: Hyponatremia, acute renal failure. SUBJECTIVE: Ms. Hill is an 89-year-old elderly female with history of hypertension, diabetes, AFib, severe aortic stenosis, chronic kidney disease stage III, with history of left atrial thrombus on anticoagulation, was brought in by family with decreased p.o. intake for 3 to 4 days and the patient was found to have severe hyponatremia and acute renal failure. The patient was started on gentle IV hydration. The patient is on BiPAP. The patient is also DNR and DNI. The patient's family is at bedside, not in distress. The patient is very drowsy, and not following commands. PHYSICAL EXAMINATION: GENERAL: Ms. Hill is an 89-year-old elderly, very thin build, cachectic female on BiPAP, not in distress, very drowsy. VITAL SIGNS: Blood pressure 136/66, pulse 102, respirations 22, temperature 97.4 on BiPAP, FiO2 60%, height 4 feet, weight 81 pounds. HEENT: Pupils are normal, reactive to light and accommodation. Conjunctivae pink. Sclerae anicteric. CARDIOPULMONARY: Addison at the fifth intercostal space, midclavicular line. S1 and S2 audible. Ejection systolic murmur present, no gallop. LUNGS: Symmetry on both sides. Bilateral breath sounds present. Clear on auscultation. ABDOMEN: Scaphoid, soft, tympanic. No guarding. No rigidity. No hepatosplenomegaly. CENTRAL NERVOUS SYSTEM: The patient is very drowsy. Sensory and motor system is grossly within normal limits. EXTREMITIES: No cyanosis, no clubbing, no edema. LABORATORY DATA: Repeat labs this evening: Sodium 161, potassium 2.7, chloride 122, bicarb 19, and BUN 63, creatinine 1.9, glucose 166, calcium 8.6. CURRENT MEDICATIONS: Include as follows: Diltiazem 30 p.o. q.i.d., Coreg 3.125 mg p.o. b.i.d., and IV fluids D5W at 60 mL per hour, morphine 2 mg IV q. 4 hours, Novolog per sliding scale, Pepcid 20 mg p.o. daily, and Xarelto 10 mg p.o. at bedtime. ASSESSMENT AND PLAN: In summary, Mrs. Hill is 89-year-old elderly female with history of hypertension, diabetes, aortic stenosis, occasional atrial fibrillation and left atrial thrombus on anticoagulation with increased BUN and creatinine and increased serum sodium, decreased p.o. intake 3 to 4 days admission. 1. Hyponatremia, secondary to intravascular depletion, secondary to dehydration. 2. Acute renal failure on chronic kidney disease, his renal function is slowly improving with gentle hydration. 3. Hyperkalemia. 4. Metabolic acidosis secondary to renal failure. PLAN: We will increase IV fluid D5W at 80 mL per hour and also KCl 10 mEq IV piggyback x1 dose. The patient is DNR/DNI. Overall progress is very poor. Thank you for allowing me to participate in your patient's care and discussed with patient's son at bedside. Vel Garcia MD
--- NOTE | 2017-06-12 23:48 | CP.PCM.DIS ---
Provider - Provider Date of Admission: 06/09/17 23:18 Attending physician: Ricki Mccloud MD Diagnosis - Discharge Diagnosis (1) Bone cancer Status: Chronic Priority: Medium (2) Hypernatremia Status: Acute Priority: High (3) Severe dehydration Status: Acute Priority: High (4) Diabetes mellitus Status: Chronic (5) Hypertension Status: Chronic Hospital Course - Lab Results Lab Results: Most Recent Lab Values WBC 4.5 K/uL (4.8-10.8) L 06/10/17 21:57 RBC 5.09 Mil/uL (3.80-5.20) 06/10/17 21:57 Hgb 13.9 g/dL (11.0-16.0) 06/10/17 21:57 Hct 44.8 % (34.0-47.0) 06/10/17 21:57 MCV 88.0 fL (81.0-99.0) 06/10/17 21:57 MCH 27.3 pg (27.0-31.0) 06/10/17 21:57 MCHC 31.0 g/dL (33.0-37.0) L 06/10/17 21:57 RDW 17.3 % (11.5-14.5) H 06/10/17 21:57 Plt Count 49 K/uL (130-400) L 06/10/17 21:57 MPV 8.5 fL (7.2-11.7) 06/10/17 21:57 Neut % (Auto) 93.1 % (50.0-75.0) H 06/10/17 21:57 Lymph % (Auto) 4.4 % (20.0-40.0) L 06/10/17 21:57 Cannon % (Auto) 2.4 % (0.0-10.0) 06/10/17 21:57 Eos % (Auto) 0.0 % (0.0-4.0) 06/10/17 21:57 Baso % (Auto) 0.1 % (0.0-2.0) 06/10/17 21:57 Neut # 4.2 K/uL (1.8-7.0) 06/10/17 21:57 Lymph # 0.2 K/uL (1.0-4.3) L 06/10/17 21:57 Cannon # 0.1 K/uL (0.0-0.8) 06/10/17 21:57 Eos # 0.0 K/uL (0.0-0.7) 06/10/17 21:57 Baso # 0.0 K/uL (0.0-0.2) 06/10/17 21:57 Neutrophils % (Manual) 94 % (50-75) H 06/10/17 21:57 Band Neutrophils % 2 % (0-2) 06/10/17 21:57 Lymphocytes % (Manual) 2 % (20-40) L 06/10/17 21:57 Reactive Lymphs % 1 % (0-0) H 06/09/17 22:29 Monocytes % (Manual) 2 % (0-10) 06/10/17 21:57 Nucleated RBC % 3 % (0-0) H 06/09/17 22:29 Platelet Estimate Decreased (NORMAL) L 06/10/17 21:57 Anisocytosis (manual) Slight 06/10/17 21:57 Sodium 161 mmol/L (132-148) H* 06/11/17 20:24 Potassium 2.7 mmol/L (3.6-5.2) L 06/11/17 20:24 Chloride 122 mmol/L (98-107) H 06/11/17 20:24 Carbon Dioxide 19 mmol/L (22-30) L 06/11/17 20:24 Anion Gap 23 (10-20) H 06/11/17 20:24 BUN 63 mg/dL (7-17) H 06/11/17 20:24 Creatinine 1.9 MG/DL (0.7-1.2) H 06/11/17 20:24 Est GFR ( Amer) 30 06/11/17 20:24 Est GFR (Non-Af Amer) 25 06/11/17 20:24 POC Glucose (mg/dL) 161 mg/dL (65-110) H 06/11/17 22:02 Random Glucose 166 mg/dL (65-105) H 06/11/17 20:24 Calcium 8.6 mg/dl (8.6-10.4) 06/11/17 20:24 Total Bilirubin 1.5 mg/dL (0.2-1.3) H 06/09/17 22:29 AST 35 U/L (14-36) 06/09/17 22:29 ALT 33 U/L (9-52) 06/09/17 22:29 Alkaline Phosphatase 80 U/L (38-126) 06/09/17 22:29 Total Protein 6.7 g/dL (6.3-8.3) 06/09/17 22:29 Albumin 3.0 g/dL (3.5-5.0) L 06/09/17 22:29 Globulin 3.7 gm/dL (2.2-3.9) 06/09/17 22:29 Albumin/Globulin Ratio 0.8 (1.0-2.1) L 06/09/17 22:29 Serum Ketones Small (NEGATIVE) 06/09/17 22:33 - Hospital Course Hospital Course: ADMITTED WITH SOB, PAIN AND SHE HAD BONE CANCER, SHE WAS DNR AND DNI AND SHE Discharge Exam - Head Exam Head Exam: ATRAUMATIC, NORMAL INSPECTION, NORMOCEPHALIC - Eye Exam Eye Exam: EOMI - ENT Exam ENT Exam: Normal Exam - Neck Exam Neck exam: Normal Inspection Discharge Plan - Follow Up Plan Condition: GUARDED Disposition: WITH WITHOUT AUTOPSY
--- NOTE | 2017-06-13 06:22 | CARD ---
APPROVED REPORT EKG Measurement Heart [id number] <Conclusion> Atrial fibrillation with rapid ventricular response with premature ventricular or aberrantly conducted complexes Left axis deviation Septal infarct, age undetermined ST & T wave abnormality, consider lateral ischemia Abnormal ECG
== END 2017-06-12 02:15 | DRG 683 ==
LOC: C.ER 21:41 → C.6T 23:18
PROVIDERS: ADMIT Internal Medicine Nephrology; ATTEND Internal Medicine
PROC: 5A09457 Assistance with Respiratory Ventilation, 24-96 Consecutive Hours, Continuous Positive Airway Pressure (ICD-10-PCS; principal; 2017-06-09)
DX: N17.9 Acute kidney failure, unspecified (principal); E87.0 Hyperosmolality and hypernatremia; R64 Cachexia; C41.9 Malignant neoplasm of bone and articular cartilage, unspecified; E87.2 Acidosis; E86.0 Dehydration; I50.40 Unspecified combined systolic (congestive) and diastolic (congestive) heart failure; I13.0 Hypertensive heart and chronic kidney disease with heart failure and stage 1 through stage 4 chronic kidney disease, or unspecified chronic kidney disease; I48.2 Chronic atrial fibrillation; E11.22 Type 2 diabetes mellitus with diabetic chronic kidney disease; E87.1 Hypo-osmolality and hyponatremia; I51.3 Intracardiac thrombosis, not elsewhere classified; M81.0 Age-related osteoporosis without current pathological fracture; N18.3 Chronic kidney disease, stage 3 (moderate); E87.5 Hyperkalemia; I25.10 Atherosclerotic heart disease of native coronary artery without angina pectoris; Z66 Do not resuscitate; I35.0 Nonrheumatic aortic (valve) stenosis; R06.02 Shortness of breath; R09.02 Hypoxemia; Z79.01 Long term (current) use of anticoagulants; Z79.84 Long term (current) use of oral hypoglycemic drugs; Z79.899 Other long term (current) drug therapy